=== PATIENT | female | born 1975 | race Hispanic/Latino ===

== ENCOUNTER 2021-05-13 19:03 | Emergency (ER) | payer OTHER ==
[~2021-05-13] VITALS: Ht 165.1 cm; Wt 63.5 kg
[2021-05-13 19:50] VITALS: BP 115/70
[2021-05-13] MEDS ORDERED: TETRACAINE HCL 0.5% 4 ML OPHTH SOLN OD ONE (20:30)
[2021-05-13] MEDS ORDERED: FLUORESCEIN SODIUM 1 STRIP STRIP ONE (21:10)
[2021-05-13] MEDS ORDERED: ORPH-43 PO (21:53)
[2021-05-13] MEDS ORDERED: MELO7.5T12 PO (21:53)
[2021-05-13] MEDS ORDERED: KETO5DRO82 OD (21:53)
[2021-05-13] MEDS ORDERED: ORPHENADRINE CITRATE 30 MG/ML ML IM ONE (22:00)
[2021-05-13] MEDS ORDERED: KETOROLAC 60 MG VIAL (30MG/ML) IM ONE (22:00)
== END 2021-05-13 22:10 | disposition home or self-care (01) ==
LOC: EDH 19:03
DX: S29.012A Strain of muscle and tendon of back wall of thorax, initial encounter (principal); S05.11XA Contusion of eyeball and orbital tissues, right eye, initial encounter; Z79.1 Long term (current) use of non-steroidal anti-inflammatories (NSAID); W18.39XA Other fall on same level, initial encounter; Y93.89 Activity, other specified; Y92.89 Other specified places as the place of occurrence of the external cause; Y99.8 Other external cause status
CPT/HCPCS: 96372 ×2; 99284; J1885; J2360